=== PATIENT | male | born 1950 | race Caucasian/White ===

== ENCOUNTER → 2023-09-22 11:42 | Outpatient (REF) | payer MEDICARE, OTHER, SELFPAY | LOC: REG 11:42 | PROVIDERS: ATTENDING PHYSICIAN Psychiatry & Neurology Behavioral Neurology & Neuropsychiatry; FAMILY PHYSICIAN Family Medicine; REFERRING PHYSICIAN Psychiatry & Neurology Neurology | DX: G30.9 Alzheimer's disease, unspecified (principal) | CPT/HCPCS: 36415 ==

== ENCOUNTER → 2023-10-14 11:36 | Outpatient (REF) | payer MEDICARE, OTHER, SELFPAY | LOC: PAVMRI 11:36 | PROVIDERS: ATTENDING PHYSICIAN Psychiatry & Neurology Neurology; FAMILY PHYSICIAN Family Medicine; REFERRING PHYSICIAN Psychiatry & Neurology Behavioral Neurology & Neuropsychiatry | DX: R41.89 Other symptoms and signs involving cognitive functions and awareness (principal) | CPT/HCPCS: 70553; A9575 ==

== ENCOUNTER → 2024-06-27 13:05 | Outpatient (REF) | payer MEDICARE, OTHER, SELFPAY | LOC: RAD 13:05 | PROVIDERS: ATTENDING PHYSICIAN Nurse Practitioner Family | DX: R06.09 Other forms of dyspnea (principal) | CPT/HCPCS: 71046 ==

== ENCOUNTER → 2024-12-06 09:35 | Outpatient (REF) | payer MEDICARE, OTHER, SELFPAY ==
[2024-12-06 11:32] LABS: TSH 2.59 uIU/ml (0.47-4.68)
[2024-12-06 11:35] LABS: ALT (SGPT) 25 U/L (0-50); AST (SGOT) 24 U/L (17-59); Albumin 4.7 g/dl (3.5-5.0); Alkaline Phosphatase 79 U/L (38-126); Blood Urea Nitrogen 15 mg/dl (9-20); Carbon Dioxide 28 mmol/L (22-30); Chloride 107 mmol/L (98-107); Glucose 89 mg/dl (70-99); HDL Cholesterol 44 mg/dl; LDL Cholesterol, Calculated 103 mg/dl; Potassium 4.5 mmol/L (3.5-5.1); Sodium 144 mmol/L (135-145); Total Bilirubin 1.2 mg/dl (0.2-1.3); Total Cholesterol 160 mg/dl (50-199); Total Protein 7.2 g/dl (6.3-8.2); Triglyceride 67 mg/dl (10-149); Very Low Density Lipoprotein 13 mg/dl (0-30); eGFR > 60.00
== END ==
LOC: REG 09:35
PROVIDERS: ATTENDING PHYSICIAN Family Medicine
DX: I10 Essential (primary) hypertension (principal); E78.9 Disorder of lipoprotein metabolism, unspecified; E66.9 Obesity, unspecified; E07.9 Disorder of thyroid, unspecified; Z00.00 Encounter for general adult medical examination without abnormal findings
CPT/HCPCS: 36415; 80053; 80061; 84443